=== PATIENT | female | born 1965 | race Caucasian/White ===

== ENCOUNTER 2018-02-25 14:40 | Emergency (ER) | payer SELFPAY ==
[~2018-02-25] VITALS: Ht 160 cm; Wt 79.4 kg
[2018-02-25 14:53] VITALS: BP_SYST 121
[2018-02-25] MEDS ORDERED: HYDROcodone/ACETAMIN 5-325 MG TAB (NORCO/ VICODIN) PO ONE (15:15)
[2018-02-25 16:29] VITALS: BP_SYST 127
== END 2018-02-25 16:29 | disposition home or self-care (01) ==
LOC: SED 14:40
DX: S92.911A Unspecified fracture of right toe(s), initial encounter for closed fracture (principal); W22.8XXA Striking against or struck by other objects, initial encounter; Y93.01 Activity, walking, marching and hiking; Y92.89 Other specified places as the place of occurrence of the external cause; Y99.8 Other external cause status
CPT/HCPCS: 99284